=== PATIENT | female | born 1995 | race Caucasian/White ===

== ENCOUNTER 2019-08-30 22:11 | Outpatient (CLI) | payer MEDICAID ==
[2019-08-30 22:48] LABS: APPEARANCE,URINE SLIGHTLY-CLOUDY; BILIRUBIN,URINE NEGATIVE (NEGATIVE); COLOR,URINE YELLOW; GLUCOSE, URINE NEGATIVE (NEGATIVE); KETONES,URINE NEGATIVE (NEGATIVE); LEUKOCYTE ESTERASE,URINE SMALL (NEGATIVE); NITRITE,URINE NEGATIVE (NEGATIVE); PROTEIN,URINE NEGATIVE (NEGATIVE); URINE SPECIFIC GRAVITY 1.011; UROBILINOGEN,URINE NEGATIVE mg/dL (<2.0)
[2019-08-30 23:08] LABS: URINE AMPHETAMINES SCREEN NEGATIVE; URINE BARBITURATES SCREEN NEGATIVE; URINE BENZODIAZEPINES SCREEN NEGATIVE; URINE COCAINE SCREEN NEGATIVE; URINE MARIJUANA (THC) SCREEN NEGATIVE; URINE METHADONE SCREEN NEGATIVE; URINE PHENCYCLIDINE SCREEN NEGATIVE
--- NOTE | 2019-08-30 23:58 | Non Stress Test Report ---
Non Stress Test Datetime Report Generated by CPN: 08/30/2019 23:58 DEMOGRAPHIC EGA NST: 36.3 INDICATION Indication for Study (NST) Other: lc MONITORING Monitor Explained: Monitor Explained; Test Explained; Patient Verbalized Understanding Time on Monitor: 08/30/2019 22:56 Time off Monitor: 08/30/2019 23:40 NST Duration: 44 NST INTERVENTIONS NST Interventions: Reposition Patient Physician Notified NST: D [place] WANT AD CLERK A: [id number] BABY A Movement : Present Contraction Frequency : rare FHR Baseline : 130 Accelerations : 15X15 Decelerations : None Variability : Moderate 6-25bpm NST Review: Meets Criteria for Reactive NST NST Review and Verified By : mary simmons NST Results: Reactive NST REPORT Report Trigger: Send Report
== END 2019-08-31 00:01 | disposition home or self-care (01) ==
LOC: LC 22:11
PROVIDERS: ATTEND Obstetrics & Gynecology Gynecology
PROC: 4A1HXCZ Monitoring of Products of Conception, Cardiac Rate, External Approach (ICD-10-PCS; principal; 2019-08-30)
DX: Z34.93 Encounter for supervision of normal pregnancy, unspecified, third trimester (principal); Z3A.36 36 weeks gestation of pregnancy
CPT/HCPCS: 59025; 80307; 81001; 84112

== ENCOUNTER 2019-09-15 18:17 | Outpatient (CLI) | payer MEDICAID ==
[2019-09-15 20:29] LABS: APPEARANCE,URINE CLOUDY; BILIRUBIN,URINE NEGATIVE (NEGATIVE); COLOR,URINE YELLOW; GLUCOSE, URINE NEGATIVE (NEGATIVE); KETONES,URINE NEGATIVE (NEGATIVE); LEUKOCYTE ESTERASE,URINE MODERATE (NEGATIVE); NITRITE,URINE NEGATIVE (NEGATIVE); PROTEIN,URINE NEGATIVE (NEGATIVE); URINE SPECIFIC GRAVITY 1.016; UROBILINOGEN,URINE NEGATIVE mg/dL (<2.0)
[2019-09-15 20:59] LABS: URINE AMPHETAMINES SCREEN NEGATIVE; URINE BARBITURATES SCREEN NEGATIVE; URINE BENZODIAZEPINES SCREEN NEGATIVE; URINE COCAINE SCREEN NEGATIVE; URINE MARIJUANA (THC) SCREEN NEGATIVE; URINE METHADONE SCREEN NEGATIVE; URINE PHENCYCLIDINE SCREEN NEGATIVE
--- NOTE | 2019-09-15 22:20 | Non Stress Test Report ---
Non Stress Test Datetime Report Generated by CPN: 09/15/2019 22:20 DEMOGRAPHIC EGA NST: 38.5 VITAL SIGNS Temperature - NST: 97.2 Pulse - NST: 97 RESP - NST: 17 NBPSYS NST: 128 NBPDIA NST: 72 MONITORING Monitor Explained: Monitor Explained; Test Explained; Patient Verbalized Understanding Time on Monitor: 09/15/2019 18:34 Time off Monitor: 09/15/2019 20:44 NST Duration: 130 NST INTERVENTIONS NST Interventions: None Physician Notified NST: Dr Barnhart BABY A: [id number] BABY A Movement : Present Contraction Frequency : irregular FHR Baseline : 145 Accelerations : 15X15 Decelerations : None Variability : Moderate 6-25bpm NST Review: Meets Criteria for Reactive NST NST Review and Verified By : Aggie Grimm, RN NST Results: Reactive NST REPORT Report Trigger: Send Report
== END 2019-09-15 20:52 | disposition home or self-care (01) ==
LOC: LC 18:17
PROVIDERS: ATTEND Obstetrics & Gynecology
PROC: 4A1HXCZ Monitoring of Products of Conception, Cardiac Rate, External Approach (ICD-10-PCS; principal; 2019-09-15)
DX: O47.1 False labor at or after 37 completed weeks of gestation (principal); Z3A.38 38 weeks gestation of pregnancy
CPT/HCPCS: 59025; 80307; 81005; 87086

== ENCOUNTER 2019-09-18 05:04 | Inpatient (IN) | payer MEDICAID ==
[2019-09-16 09:54] LABS: APPEARANCE,URINE CLOUDY; BILIRUBIN,URINE NEGATIVE (NEGATIVE); COLOR,URINE YELLOW; GLUCOSE, URINE NEGATIVE (NEGATIVE); KETONES,URINE NEGATIVE (NEGATIVE); LEUKOCYTE ESTERASE,URINE MODERATE (NEGATIVE); NITRITE,URINE NEGATIVE (NEGATIVE); PROTEIN,URINE 30 mg/dL (NEGATIVE); URINE SPECIFIC GRAVITY 1.018; UROBILINOGEN,URINE NEGATIVE mg/dL (<2.0)
[2019-09-16 10:03] LABS: URINE AMPHETAMINES SCREEN NEGATIVE; URINE BARBITURATES SCREEN NEGATIVE; URINE BENZODIAZEPINES SCREEN NEGATIVE; URINE COCAINE SCREEN NEGATIVE; URINE MARIJUANA (THC) SCREEN NEGATIVE; URINE METHADONE SCREEN NEGATIVE; URINE PHENCYCLIDINE SCREEN NEGATIVE
[2019-09-16 10:34] LABS: ABSOLUTE EOSINOPHILS # (AUTO) 0.1 10^3/uL (0.0-0.6); ABSOLUTE LYMPHOCYTES (AUTO) 2.4 10^3/uL (0.5-4.7); ABSOLUTE NEUT (AUTO) 11.6 10^3/uL (1.7-8.2); BASOPHILS % (AUTO) 0.3 % (0-2); EOSINOPHILS % (AUTO) 0.5 % (0-6); HEMATOCRIT 33.7 % (36.0-47.0); HEMOGLOBIN 11.4 g/dL (12.0-15.5); LYMPHOCYTES % (AUTO) 15.7 % (13-45); MEAN CORPUSCULAR HEMOGLOBIN 28.8 pg (27.0-33.4); MEAN CORPUSCULAR HGB CONC 33.8 g/dL (32.0-36.0); MEAN CORPUSCULAR VOLUME 85 fl (80-97); MONOCYTES % (AUTO) 6.5 % (3-13); PLATELET COUNT 359 10^3/uL (150-450); RED BLOOD COUNT 3.94 10^6/uL (3.72-5.28); RED CELL DISTRIBUTION WIDTH 14.4 % (11.5-14.0); TOTAL CELLS COUNTED % (AUTO) 100 %; WHITE BLOOD COUNT 15.1 10^3/uL (4.0-10.5)
[~2019-09-18 05:04] MED LIST: CEFAZOLIN SODIUM 2 GM in DEXTROSE 5%-WATER 100 ML IV PRN; LACTATED RINGERS 1000 ML IV PRN; LIDOCAINE 0.5% INJ-PF (5 MG/ML) 50 ML SDV SUBCUT PRN; RINGERS SOLUTION,LACTATED 1,000 ML IV PRN
[2019-09-18] MEDS ORDERED: INFLUENZA QUAD (6MOS+) 2019-20 VAC 0.5 ML SYR IM ONE (05:48)
[2019-09-18] MEDS ORDERED: CEFAZOLIN INJ 1 GM VIAL ONE (05:56)
[2019-09-18] MEDS ORDERED: OXYTOCIN 10 UNIT/ML VIAL ONE (06:53)
[2019-09-18] MEDS ORDERED: ONDANSETRON HCL INJ/PF 4 MG/2 ML SDV ONE (06:54)
[2019-09-18] MEDS ORDERED: OXYTOCIN/NORMAL SALINE 20 UNIT/1,000 ML RTUINJ ONE (06:54)
[2019-09-18] MEDS ORDERED: FENTANYL CITRATE INJ/PF 100 MCG/2 ML AMPUL ONE (06:54)
[2019-09-18] MEDS ORDERED: EPHEDRINE SULFATE INJ 50 MG/1 ML AMPULE ONE (06:54)
[2019-09-18] MEDS ORDERED: MIDAZOLAM 2 MG/2 ML INJ ONE (06:54)
[2019-09-18] MEDS ORDERED: NALBUPHINE HCL INJ 10 MG/1 ML AMPULE ONE (06:55)
[2019-09-18] MEDS ORDERED: FENTANYL CITRATE INJ/PF 100 MCG/2 ML AMPUL IV PRN ×3 (07:13)
[2019-09-18] MEDS ORDERED: PROMETHAZINE HCL INJ 25 MG/1 ML VIAL IV PRN ×2 (07:13→08:20)
[2019-09-18] MEDS ORDERED: DIPHENHYDRAMINE HCL 50 MG/ML VIAL IV PRN (07:13)
[2019-09-18] MEDS ORDERED: MORPHINE SULFATE 10 MG/ML INJ IV PRN (07:13)
[2019-09-18] MEDS ORDERED: MEPERIDINE HCL/PF INJ 25 MG/1 ML DISP.SYRIN IV PRN (07:13)
[2019-09-18] MEDS ORDERED: ONDANSETRON HCL INJ/PF 4 MG/2 ML SDV IV PRN (07:13)
[2019-09-18] MEDS ORDERED: DIPH/PERTUSS(ACELL)/TETANUS VAC/PF 0.5 ML SYR (>=10YO) IM PRN (08:20)
[2019-09-18] MEDS ORDERED: ACETAMINOPHEN 1,000 MG/100 ML RTUPB IV PRN (08:20)
[2019-09-18] MEDS ORDERED: MEASLES,MUMPS&RUBELLA VACC/PF 0.5 ML VIAL SUBCUT PRN (08:20)
[2019-09-18] MEDS ORDERED: SIMETHICONE 80 MG TAB.CHEW PO PRN (08:20)
[2019-09-18] MEDS ORDERED: ACETAMINOPHEN 325 MG TABLET PO PRN (08:20)
[2019-09-18] MEDS ORDERED: OXYTOCIN/NORMAL SALINE 20 UNIT/1,000 ML RTUINJ IV PRN (08:20)
--- NOTE | 2019-09-18 08:25 | Operative Report ---
Operative Report DATE OF SURGERY: 09/18/19 PREOPERATIVE DIAGNOSIS: IUP at term with prior section POSTOPERATIVE DIAGNOSIS: Same OPERATION: Repeat low transverse section delivery of a viable female Apgars of 9 and 9 SURGEON: MARIA ELENA NASH ANESTHESIA: Spinal TISSUE REMOVED OR ALTERED: Placenta COMPLICATIONS: None ESTIMATED BLOOD LOSS: 800 cc PROCEDURE: The patient was taken to the operating room where spinal anesthesia was obtained and found to be adequate. She was then prepped and draped in the normal sterile fashion and placed in the dorsal supine position with a leftward tilt. A Pfannenstiel skin incision was then made and carried through to the underlying layers of the fascia with the scalpel. The fascia was incised in the midline and the incision extended laterally with the Bagley scissors. The superior aspect of the fascial incision was then grasped with [place] clamps elevated and the underlying rectus muscles dissected off bluntly. Attention was then turned to the inferior aspect of the fascial incision which in a similar fashion was grasped, tented up with Willy clamps, and the rectus muscles dissected off bluntly. The rectus muscles were then in the midline and the peritoneum at the amount identified and entered bluntly. The peritoneal incision was then extended superiorly and inferiorly with good visualization of the bladder. [The bladder blade was inserted and the vesicouterine peritoneum identified grasped with [place] pickups and entered sharply with the Metzenbaum scissors. His incision was then extended laterally with the Metzenbaum scissors and a bladder flap created digitally. The bladder blade was then reinserted and the lower uterine segment incised in a transverse fashion with the scalpel. The uterine incision was then extended bluntly. The bladder blade was removed and the 's head was delivered from cephalic presentation atraumatically. The nose and mouth were suctioned and the cord doubly clamped and cut. And the infant was handed off to waiting pediatricians. The placenta was then delivered manully and the uterus exteriorized and cleared of all clots and debris. The uterine incision was then repaired with 1-0 Vicryl in a running locked fashion. A second layer of the same suture was used to obtain hemostasis via imbrication of the initial layer. The uterus was returned to the patient's abdomen. The gutters were cleared of all clots and debris. All operative sites were noted to be hemostatic. The fascia was reapproximated with 0 Vicryl in a running fashion from each lateral edge to the midline. The patient tolerated the procedure well. Sponge lap needle and instrument counts are correct -2. 2 g of Ancef were given prior to skin incision. The patient was taken to the recovery area awake and in stable condition.
[2019-09-18] MEDS ORDERED: ACETAMINOPHEN 1,000 MG/100 ML RTUPB IV ONE (09:19)
[2019-09-18] MEDS ORDERED: MORPHINE SULFATE 10 MG/ML INJ ONE (09:20)
--- NOTE | 2019-09-18 09:29 | PDOC DELIVERY SUMMARY ---
Delivery Summary - Maternal Hx : V Hx # Term Pregnancies: 5 Hx # Pregnancies: 0 Hx Total # of Abortions (Sponateous & Elective): 0 GENE: 09/24/19 Gestational Age: 39+0 Risk Factors: Gestational Diabetes Ruptured Membranes: AROM Time of Rupture: 08:02 Fluids: Clear - Delivery Labor: Not In Labor Presentation: Vertex Heart Rate Monitoring: Done Pre-Operatively Support Person Present: Yes - MOTHER ENZO Location: OR : Scheduled Placenta: Within Normal Limits Nuchal Cord: No Delivery of Placenta Date: 09/18/19 Delivery of Placenta Time: 08:03 - Medications Type of Anesthesia:: Spinal - Assess and Care Baby 1 Female Delivery of Infant Date: 09/18/19 Delivery of Infant Time: 08:03 at 1 minute: 9 at 5 minutes: 9 Preprinted Number On Band: [id number] [facility] Personnel Nursery RN: JOAO THRASHER Nursekaruna RN: ENZO CHAPMAN MD: MARIA ELENA NASH
[2019-09-18] MEDS: MORPHINE SULFATE 10 MG/ML INJ IM PRN ×2 (10:22→14:21)
[2019-09-18] MEDS: PRENATAL VITAMIN W DHA CAPSULE PO SCH (12:10)
[2019-09-18] MEDS: DOCUSATE SODIUM 100 MG CAPSULE PO SCH ×2 (12:10→18:15)
[2019-09-18] MEDS: OXYCODONE-ACETAMINOPHEN 5-325 MG TABLET PO PRN ×3 (12:11→22:27)
[2019-09-18] MEDS: KETOROLAC TROMETHAMINE INJ/PF 30 MG/1 ML SDV IV SCH ×2 (14:21→23:30)
[2019-09-19] MEDS: OXYCODONE-ACETAMINOPHEN 5-325 MG TABLET PO PRN ×5 (03:58→22:16)
[2019-09-19] MEDS: KETOROLAC TROMETHAMINE INJ/PF 30 MG/1 ML SDV IV SCH ×3 (05:10→21:07)
[2019-09-19 06:08] LABS: HEMATOCRIT 30.7 % (36.0-47.0); HEMOGLOBIN 10.5 g/dL (12.0-15.5); MEAN CORPUSCULAR HEMOGLOBIN 29.2 pg (27.0-33.4); MEAN CORPUSCULAR HGB CONC 34.2 g/dL (32.0-36.0); MEAN CORPUSCULAR VOLUME 85 fl (80-97); PLATELET COUNT 329 10^3/uL (150-450); RED CELL DISTRIBUTION WIDTH 14.5 % (11.5-14.0); WHITE BLOOD COUNT 13.2 10^3/uL (4.0-10.5)
[2019-09-19] MEDS: PRENATAL VITAMIN W DHA CAPSULE PO SCH (10:32)
[2019-09-19] MEDS: DOCUSATE SODIUM 100 MG CAPSULE PO SCH ×2 (10:32→17:19)
--- NOTE | 2019-09-19 11:37 | PDOC PROGRESS REPORT ---
Subjective-OB Progress Note for:: 09/19/19 Subjective: Pt is oob, ambulatory. She would like to go home. Reports light bleeding, reg diet and +flatus/BM. Physical Exam (OB) Vital Signs: Temp Pulse Resp BP Pulse Ox 97.6 F 70 18 117/68 98 09/19/19 07:30 09/19/19 07:29 09/19/19 07:29 09/19/19 07:29 09/19/19 07:29 Intake & Output 09/18/19 09/19/19 09/20/19 06:59 06:59 06:59 Intake Total 1140 Output Total 1550 Balance -410 Weight 93.44 kg - PIH/Pre-Eclampsia Clonus: Negative Headache: Absent Epigastric Pain: No Visual Changes: No - Dressing Removed: No - opsite with small drainage Incision: Draining Closure Type: Opsite - Lochia Lochia Amount: Scant < 10 ml Lochia Color: Rubra/Red - Abdomen Description: Soft, Round Hernia Present: No Fundal Description: Firm, Midline Fundal Height: u/u - u/2 Objective-Diagnostic Laboratory: 09/19/19 05:48 09/19/19 05:48 WBC 13.2 H RBC 3.60 L Hgb 10.5 L Hct 30.7 L MCV 85 MCH 29.2 MCHC 34.2 RDW 14.5 H Plt Count 329 Assessment and Plan(PN) - Assessment and Plan (1) S/P section Is this a current diagnosis for this admission?: Yes - Time Spent with Patient Time with patient: Less than 15 minutes Medications reviewed and adjusted accordingly: Yes - Disposition Anticipated Discharge: Home Within: within 24 hours
[2019-09-19] MEDS: IBUPROFEN 800 MG TABLET PO SCH ×2 (12:19→17:17)
[2019-09-20] MEDS: IBUPROFEN 800 MG TABLET PO SCH ×3 (01:21→12:05)
[2019-09-20] MEDS: OXYCODONE-ACETAMINOPHEN 5-325 MG TABLET PO PRN (02:57)
[2019-09-20] MEDS: KETOROLAC TROMETHAMINE INJ/PF 30 MG/1 ML SDV IV SCH (06:22)
--- NOTE | 2019-09-20 09:49 | PDOC DISCHARGE SUMMARY ---
Impression - Admit/DC Date/PCP Admission Date/Primary Care Provider: 09/18/19 05:04 MARIA ELENA NASH MD Discharge Date: 09/20/19 - Discharge Diagnosis (1) S/P section Is this a current diagnosis for this admission?: Yes - Additional Information Resuscitation Status: Full Code Discharge Diet: Regular Discharge Activity: Activity As Tolerated, Balance Activity w/Rest, No Lifting Over 10 Pounds, No Lifting/Push/Pulling, Pelvic Rest, No tub bath Referrals: MARIA ELENA NASH MD [Primary Care Provider] - Prescriptions: Oxycodone HCl/Acetaminophen [Percocet 5-325 mg Tablet] 2 tab PO Q4HP PRN #30 tablet PRN Reason: Ibuprofen [Motrin 800 mg Tablet] 800 mg PO Q8HP PRN #60 tablet PRN Reason: Home Medications: Vit,Calc76/Iron/Folic [Prenatabs Rx Tablet] 1 each PO DAILY 08/30/19 Ibuprofen [Motrin 800 mg Tablet] 800 mg PO Q8HP PRN #60 tablet 09/19/19 Oxycodone HCl/Acetaminophen [Percocet 5-325 mg Tablet] 2 tab PO Q4HP PRN #30 tablet 09/19/19 Results Laboratory Results: WBC 13.2 10^3/uL (4.0-10.5) H 09/19/19 05:48 RBC 3.60 10^6/uL (3.72-5.28) L 09/19/19 05:48 Hgb 10.5 g/dL (12.0-15.5) L 09/19/19 05:48 Hct 30.7 % (36.0-47.0) L 09/19/19 05:48 MCV 85 fl (80-97) 09/19/19 05:48 MCH 29.2 pg (27.0-33.4) 09/19/19 05:48 MCHC 34.2 g/dL (32.0-36.0) 09/19/19 05:48 RDW 14.5 % (11.5-14.0) H 09/19/19 05:48 Plt Count 329 10^3/uL (150-450) 09/19/19 05:48 Lymph % (Auto) 15.7 % (13-45) 09/16/19 09:55 [place] % (Auto) 6.5 % (3-13) 09/16/19 09:55 Eos % (Auto) 0.5 % (0-6) 09/16/19 09:55 Baso % (Auto) 0.3 % (0-2) 09/16/19 09:55 Absolute Neuts (auto) 11.6 10^3/uL (1.7-8.2) H 09/16/19 09:55 Absolute Lymphs (auto) 2.4 10^3/uL (0.5-4.7) 09/16/19 09:55 Absolute Monos (auto) 1.0 10^3/uL (0.1-1.4) 09/16/19 09:55 Absolute Eos (auto) 0.1 10^3/uL (0.0-0.6) 09/16/19 09:55 Absolute Basos (auto) 0.0 10^3/uL (0.0-0.2) 09/16/19 09:55 Seg Neutrophils % 77.0 % (42-78) 09/16/19 09:55 POC Glucose 114 mg/dL (70-110) H 09/18/19 05:44 Urine Color YELLOW 09/16/19 09:09 Urine Appearance CLOUDY 09/16/19 09:09 Urine pH 6.0 (5.0-9.0) 09/16/19 09:09 Ur Specific [place] 1.018 09/16/19 09:09 Urine Protein 30 mg/dL (NEGATIVE) H 09/16/19 09:09 Urine Glucose (UA) NEGATIVE mg/dL (NEGATIVE) 09/16/19 09:09 Urine Ketones NEGATIVE mg/dL (NEGATIVE) 09/16/19 09:09 Urine Blood MODERATE (NEGATIVE) H 09/16/19 09:09 Urine Nitrite NEGATIVE (NEGATIVE) 09/16/19 09:09 Urine Bilirubin NEGATIVE (NEGATIVE) 09/16/19 09:09 Urine Urobilinogen NEGATIVE mg/dL (<2.0) 09/16/19 09:09 Ur Leukocyte Esterase MODERATE (NEGATIVE) H 09/16/19 09:09 Urine WBC (Auto) 22 /HPF 09/16/19 09:09 Urine RBC (Auto) 5 /HPF 09/16/19 09:09 Urine Bacteria (Auto) TRACE /HPF 09/16/19 09:09 Squamous Epi Cells Auto 19 /HPF 09/16/19 09:09 U Non-Squamous Epis Auto 1 /HPF 09/16/19 09:09 Urine Mucus (Auto) FEW /LPF 09/16/19 09:09 Urine Ascorbic Acid NEGATIVE (NEGATIVE) 09/16/19 09:09 Urine Opiates Screen NEGATIVE 09/16/19 09:09 Urine Methadone Screen NEGATIVE 09/16/19 09:09 Ur Barbiturates Screen NEGATIVE 09/16/19 09:09 Ur Phencyclidine Scrn NEGATIVE 09/16/19 09:09 Ur Amphetamines Screen NEGATIVE 09/16/19 09:09 U Benzodiazepines Scrn NEGATIVE 09/16/19 09:09 Urine Cocaine Screen NEGATIVE 09/16/19 09:09 U Marijuana (THC) Screen NEGATIVE 09/16/19 09:09 Blood Type O POSITIVE 09/16/19 09:55 Antibody Screen NEGATIVE 09/16/19 09:55
[2019-09-20] MEDS: DOCUSATE SODIUM 100 MG CAPSULE PO SCH (09:52)
[2019-09-20] MEDS: PRENATAL VITAMIN W DHA CAPSULE PO SCH (09:52)
[2019-09-20 12:29] VITALS: BP 120/62
== END 2019-09-20 12:30 | disposition home or self-care (01) | DRG 788 ==
LOC: 2S 05:04
PROVIDERS: ADMIT Obstetrics & Gynecology Gynecology; ATTEND Obstetrics & Gynecology Gynecology
PROC: 10D00Z1 Extraction of Products of Conception, Low, Open Approach (ICD-10-PCS; principal; 2019-09-18 07:45)
PROC: 3E02340 Introduction of Influenza Vaccine into Muscle, Percutaneous Approach (ICD-10-PCS; 2019-09-20)
DX: O24.420 Gestational diabetes mellitus in childbirth, diet controlled (principal); O34.211 Maternal care for low transverse scar from previous cesarean delivery; Z37.0 Single live birth; Z3A.39 39 weeks gestation of pregnancy; Z23 Encounter for immunization
CPT/HCPCS: 36415; 59025; 80307; 81001; 82962; 85025; 85027; 86850; 86900; 86901; 90686; 94799; J0131; J0690; J1885; J2250; J2270; J2300; J2405; J2590; J3010; J3490; J7060; J7120